=== PATIENT | male | born 1995 | race Caucasian/White ===

== ENCOUNTER 2016-05-26 07:46 | Inpatient (IN) | payer BC ==
[~2016-05-26] VITALS: Ht 172.7 cm; Wt 86.4 kg
[2016-05-26] VITALS (8 sets, daily range): BP systolic 107–136; BP diastolic 45–89; Ht 172.7 cm; Wt 86.4 kg
--- NOTE | 2016-05-26 07:30 | NUR ---
REPORT RECEIVED AT THIS TIME FROM [facility] S[facility] IN [place]. PT WILL TRANSFER TO ROOM 2226 VIA AMBULANCE.
--- NOTE | 2016-05-26 09:44 | NUR ---
RECEIVED TO ROOM 2226 AT THIS TIME FROM [facility] IN [place]. ALERT AND ORIENTED X4. AMBULATED TO BED WITHOUT ASSISTANCE. IV TO RIGHT AC PATENT WITH BRISK BLOOD RETURN PRESENT. PAIN 4/10 ABDOMINALLY AND PT DENIES NAUSEA. ASSESSMENT AND HISTORY OBTAINED PER FLOWSHEET. GIRLFRIEND AND FATHER AT BEDSIDE. HIBICLENS BATH PERFORMED AND PT CHANGED INTO HOSPITAL GOWN. DENIES NEEDING PAIN OR NAUSEA MEDICINE AT THIS TIME.
--- NOTE | 2016-05-26 10:40 | NUR ---
PRE OPERATIVE MEDICATIONS ADMINISTERED AT THIS TIME. DR BELL AT BEDSIDE. WILL MONITOR PT WHEN HE RETURNS TO SURGERY.
[2016-05-26] MEDS ORDERED: HYDROCODON-ACE1 EAC7 PO (11:50)
--- NOTE | 2016-05-26 12:55 | NUR ---
RECEIVED BACK TO ROOM 2226 AT THIS TIME FROM PACU. ALERT AND ORIENTED. LAP SITES X3 TO ABDOMEN C/D/I WITH STERI STRIPS INTACT. IV TO RIGHT AC PATENT. PRODUCTIVE COUGH WITH THICK, CLEAR SPUTUM WITH SMALL AMOUNT OF BLOOD TINGE. SCD'S ON AND IN WORKING ORDER. PT CONVERSANT AND DENIES PAIN OR NAUSEA AT THIS TIME. FAMILY AT BEDSIDE AND POST PROCEDURE VITAL SIGNS INITIATED. INCENTIVE SPIROMETER TEACHING INITIATED WITH 2,000 ML OF INSPIRATORY VOLUME. CALL LIGHT IN REACH, WILL CONTINUE WITH PLAN OF CARE.
[2016-05-26 13:23] LABS: INR 1.32 (0.85-1.17); PROTIME 16.2 SECONDS (11.6-15.0)
[2016-05-26 13:24] LABS: APTT 46.5 SECONDS (22.8-39.4)
[2016-05-26 13:28] LABS: ANION GAP 13.9 mmol/L (8-16); CALCIUM 8.7 mg/dL (8.5-10.1); CARBON DIOXIDE 29.4 mmol/L (21.0-32.0); CREATININE - SERUM 1.3 mg/dL (0.6-1.3); POTASSIUM - SERUM 4.3 mmol/L (3.5-5.1)
--- NOTE | 2016-05-26 14:40 | NUR ---
SPOKE WITH TIFFANIE LIM AT THIS TIME, HE WAS CALLING TO CHECK ON PT'S CONDITION. EXPLAINED THAT VITAL SIGNS WERE STABLE, BUT OXYGEN SATURATIONS WERE 88-92% ON 4L VIA NC. ETCO2 40 WITH RESPIRATIONS 18, EVEN AND UNLABORED. AWAKE AND ALERT, DENIES NAUSEA OR PAIN AT THIS TIME. INCENTIVE SPIROMETER IN USE WITH 2,100 ML OF INSPIRATORY VOLUME. GIRLFRIEND REMAINS AT BEDSIDE. VITAL SIGNS STABLE AND CONTINUOUS PULSE OXIMETER MONITORING IN USE. CALL LIGHT IN REACH, WILL CONTINUE WITH PLAN OF CARE.
--- NOTE | 2016-05-26 15:00 | NUR ---
DR BELL CALLED AT THIS TIME TO CHECK ON PT'S CONDITION. EXPLAINED THE SAME INFORMATION I EXPLAINED TO TIFFANIE LIM PREVIOUSLY. NO NEW ORDERS GIVEN AT THIS TIME. WILL CONTINUE WITH PLAN OF CARE.
--- NOTE | 2016-05-26 16:00 | NUR ---
PT PROVIDED WITH ORANGE POPSICLE AND JELLO AT THIS TIME. TOLERATED WITHOUT COMPLAINTS OF NAUSEA OR VOMITING. DENIES NEED FOR PAIN MEDICATION AT THIS TIME.
--- NOTE | 2016-05-26 17:00 | NUR ---
OXYGEN WEANED TO 1L VIA NC. SATURATIONS 93-95%. FAMILY AT BEDSIDE. WILL CONTINUE TO MONITOR.
--- NOTE | 2016-05-26 17:35 | NUR ---
OXYGEN TURNED OFF AT THIS TIME. SATURATION 94-95%. WILL RE-CHECK IN 15 MINUTES. ORDERED PT CREAM OF CHICKEN SOUP AND CRACKERS, HAMBURGER IS TOO HEAVY FOR HIS STOMACH AT THIS TIME. DENIES NAUSEA OR VOMITING AND DENIES NEED FOR PAIN MEDICATION.
--- NOTE | 2016-05-26 19:10 | NUR ---
DISCHARGE PAPERWORK REVIEWED WITH PT AND FATHER. IV TO RIGHT AC D/C WITH CATH TIP INTACT. D/C HOME WITH FATHER.
--- NOTE | 2016-05-26 21:43 | CN ---
PATIENT NAME:DAMION KHOURY MEDICAL RECORD: [id number] : 95 LOCATION:D.MS [id number] ADMIT DATE: 05/26/16 ACCOUNT: [id number] CONSULTING PHYSICIAN: KATIE BELL MD REFERRING PHYSICIAN: KATIE BELL MD DATE OF CONSULTATION: 05/26/2016 Surgical Consultation CONSULTING PHYSICIAN: Dr. Katie Bell. CHIEF COMPLAINT: Abdominal pain. HISTORY OF PRESENT ILLNESS: This is a 21-year-old male ____ onset of diffuse abdominal pain yesterday around noon when he woke up. The pain was intermittent for the first several hours. Shortly thereafter, the pain became very constant, got progressively worse. The pain migrated and localized to the right lower quadrant. He says he felt nauseous, no episodes of vomiting. Denies any dysuria. No diarrhea. Denies any melena or hematochezia. He denies any fever, chills or rigors. Patient had a CT scan performed at that time, which showed a 12.8 mm appendix and a white count of 24,000 with some periappendiceal stranding. PAST MEDICAL HISTORY: None. PAST SURGICAL HISTORY: [place] teeth. ALLERGIES: None. MEDICATIONS: None. SOCIAL HISTORY: Drinks alcohol socially. No history of smoking. FAMILY HISTORY: No significant family history of cancer or heart disease. REVIEW OF SYSTEMS: A 12-point review of systems was obtained, pertinent positive and negative as per the HPI. PHYSICAL EXAMINATION: VITAL SIGNS: Temperature 97.9, pulse 79, respirations 20, blood pressure 136/89, satting 100% on room air. GENERAL: Well-developed, well-nourished male in moderate distress. PSYCHIATRIC: He is alert and oriented times 3. EYES: Extraocular muscles intact. EAR, NOSE, AND THROAT: Normal dentition. CARDIOVASCULAR: Normal sinus rhythm. PULMONARY: Clear auscultation bilaterally. ABDOMEN: Soft. He has got localized peritonitis in the right lower quadrant with guarding and rebound. SKIN: Warm, dry with normal turgor. EXTREMITIES: A 2+ pulses. No peripheral edema. NEUROLOGIC: He has a GCS of 15 with no focal deficits. LABORATORY DATA: Reviewed. Again, white count consistent with 24,000. Please see electronic medical record for remaining lab values noted from the outside CONSULT REPORT [id number] [facility]. CT scan images were personally reviewed ____ the patient has dilated appendix with periappendiceal stranding consistent with acute appendicitis. IMPRESSION: A 21-year-old male with acute appendicitis. PLAN: 1. IV fluid resuscitation. 2. IV antibiotics. 3. Preoperative Lovenox, IV narcotics for pain control. OR today for laparoscopic appendectomy. 4. Risks and benefits of procedure were discussed with the patient and his parents at the bedside. TRANSINT:[id number] Voice Confirmation ID: [id number] DOCUMENT ID: [id number] KATIE BELL MD at 2143 CC: [id number] DICTATION DATE: 05/26/16 1045 SEISMOMETER OPERATOR: 05/26/16 1352 DIS IN 05/26/16 [id number] [place] [address]
--- NOTE | 2016-05-26 21:43 | OP ---
PATIENT NAME: DAMION KHOURY MEDICAL RECORD: [id number] :95 LOCATION:D.MS Bills2226 ADMISSION DATE:05/26/16 SURGEON: KATIE BELL MD DATE OF OPERATION: 05/26/2016 SURGEON: Katie Bell MD PREOPERATIVE DIAGNOSIS: Acute appendicitis. POSTOPERATIVE DIAGNOSIS: Acute appendicitis. PROCEDURE PERFORMED: Laparoscopic appendectomy. ANESTHESIA: General. COMPLICATIONS: None. SPECIMENS: 1. Appendix. 2. Intra-abdominal fluid cultures. Case was contaminated. ESTIMATED BLOOD LOSS: 20 cc. OPERATIVE COURSE: After consent was obtained, the patient was taken to the operating room and placed in the supine position on the operating table. Next, general anesthesia was given via endotracheal intubation after a timeout was taken to confirm the correct patient and procedure. The abdomen was then prepped and draped in typical sterile fashion. Next, local anesthetic was injected at the umbilicus. A stab incision was made with 11-blade scalpel. Using a 5-mm bladeless optical trocar, the abdomen was entered under direct laparoscopic vision. Adequate pneumoperitoneum was achieved. The abdominal cavity was inspected. No evidence of bowel injury. No evidence of bleeding. The patient was then placed in a Trendelenburg position. Two additional trocars were then placed after the administration of local anesthetic, 5-mm trocar in the suprapubic position and a 12-mm trocar in the left lower quadrant. The small bowel was swept towards the left upper quadrant. The appendix was identified at the base of the cecum. The cecum was mobilized medially. A short segment of the white line of T[place] was taken down with electrocautery. The base of the appendix was identified. A mesenteric window was created using the [place] dissector. Once the window was complete, the linear cutting GI stapler was used with a blue load to transect the appendix at the cecal base. A second white load was then used to take the mesoappendix. Thereafter, the appendix was placed in an EndoCatch bag and removed through the 12-mm trocar and sent for permanent pathology. Next, the operative site was copiously irrigated and suctioned. Careful attention was paid to hemostasis. The ____ staple line was intact. There was no bleeding along the mesenteric staple line. At this time, intra-abdominal fluid cultures were taken off some turbid fluid in the pelvis and along the right pericolic gutters and sent for culture. The remaining portion of abdominal cavity was inspected. There was no evidence of bowel injury. No evidence of bleeding. Prior removal, a 12-mm trocar was removed. The trocar site was closed with an 0 Vicryl suture and a Jeramie-Karyn suture passer under direct laparoscopic vision. At this time, all instruments removed. The abdomen was desufflated. Trocars were removed. Skin was closed with 4-0 OPERATIVE REPORT [id number] PENG,DAMION Monocryl, Mastisol and Steri-Strips. At the end of the case, all needle and instrument counts were correct. No complications occurred. The patient was extubated and transferred to the PACU in stable condition. TRANSINT:[id number] Voice Confirmation ID: [id number] DOCUMENT ID: [id number] KATIE BELL MD at 2143 CC: [id number] DICTATION DATE: 05/26/16 1156 FIRE MEDIC: 05/26/16 1423 DIS IN 05/26/16 [facility] [address] [place] [address]
--- NOTE | 2016-06-06 12:20 | DS ---
PATIENT:DAMION KHOURY :89 MEDICAL RECORD: [id number] DISCHARGE SUMMARY ADMISSION DATE: 05/26/16 DISCHARGE DATE: 05/26/16 DATE OF ADMISSION: 05/26/2016 DATE OF DISCHARGE: 05/26/2016 ADMITTING PHYSICIAN: Katie Bell MD DISCHARGE PHYSICIAN: Katie Bell MD REASON FOR ADMISSION: Acute appendicitis. HOSPITAL COURSE: The patient was diagnosed with acute appendicitis by CT scan at an outside hospital. He was transferred here for admission and laparoscopic appendectomy. After admission, the patient was treated with IV antibiotics, IV narcotics for pain control, IV fluid resuscitation. He was taken to the OR for laparoscopic appendectomy, which he tolerated well. Postoperatively, he was transferred to the floor. His postoperative course was without complication. He was started on a clear liquid diet and advance as tolerated. At the time of discharge, patient's pain was well controlled on oral pain medicines. He was ambulating independently. He was tolerating a regular diet. DISCHARGE CONDITION: Stable. DISCHARGE DIET: As tolerated, no restrictions. ACTIVITY: As tolerated, no restrictions. WOUND CARE: The patient may shower, soap and water to the wound daily. No bath for 2 weeks. FOLLOWUP: With Dr. Bell in 2 weeks. DISCHARGE MEDICATIONS: Please see the electronic medical record for full list of discharge medications. TRANSINT:[id number] Voice Confirmation ID: [id number] DOCUMENT ID: [id number] KATIE BELL MD at 1220 CC: [id number] DICTATION DATE: 06/05/16 1145 SPACE AND MISSILE OPERATIONS: 06/06/16 0907 DIS IN 05/26/16 [facility] [address] [place] [id number]
== END 2016-05-26 19:10 | disposition home or self-care (01) | DRG 343 ==
LOC: D.MS 07:46
PROVIDERS: ADMIT Surgery
PROC: 0DTJ4ZZ Resection of Appendix, Percutaneous Endoscopic Approach (ICD-10-PCS; principal; 2016-05-26 11:00)
DX: K35.80 Unspecified acute appendicitis (principal)